=== PATIENT | female | born 1990 | race Caucasian/White ===

== ENCOUNTER 2021-12-22 22:05 | Emergency (ER) | payer MEDICAID, SELFPAY ==
[2021-12-22 22:06] VITALS: BP 189/126; PULSE 78; RESP 16; TEMP 36.6; O2SAT 98; BMI 35.9
[2021-12-22 22:46] VITALS: BP 168/108
--- NOTE | 2021-12-22 23:08 | EKG12_ITS ---
Test Reason : HTN Blood Pressure : / mmHG Vent. Rate : 066 BPM Atrial Rate : 066 BPM P-R Int : 148 ms QRS Dur : 090 ms QT Int : 370 ms P-R-T Axes : 036 040 025 degrees QTc Int : 387 ms Normal sinus rhythm with sinus arrhythmia Poor R wave progression Confirmed by SHI MARIE, SO ([id number]), editor trade journal SATISH DE LA ROSA ([id number]) on 12/26/2021 9:27:44 AM Referred By: Confirmed By:SO OSULLIVAN MD
[2021-12-22] MEDS: Labetalol (Prefilled) 20 MG/4 ML IV (23:55)
[2021-12-23 00:03] LABS: Anion Gap 6 (5-15); BUN 13 mg/dL (7-18); BUN/Creat Ratio 16.8 RATIO (10-20); Calcium,Total 9.3 mg/dL (8.5-10.1); Chloride 109 mmol/L (98-107); Creatinine, Serum 0.77 mg/dL (0.55-1.02); EST Glomerular Filtration Rate 92 mL/min (>60); Est Glom Filt Rate - Afr Amer 111 mL/min (>60); Estimated Creatinine Clearance 75.34 ml/min; Glucose 91 mg/dL (74-106); Potassium 4.5 mmol/L (3.5-5.1); Sodium Level 138 mmol/L (136-145); Troponin-I HS < 3 pg/mL (3.0-54.0)
[2021-12-23 00:30] VITALS: BP 150/94; PULSE 84; RESP 18; O2SAT 98
[2021-12-23 00:33] LABS: Absolute Lymphocyte Count 2.51 X10^3/uL (0.83-4.51); Absolute Neutrophil Count 4.2 X10^3/uL (2.0-7.7); Basophil# 0.04 X10^3/uL; Basophil% 0.5 % (0-1); Eosinophil# 0.18 X10^3/uL; Eosinophils% 2.4 % (0-5); Hematocrit 41.7 % (37-47); Hemoglobin 13.9 g/dL (12.0-15.0); Lymphocyte # 2.51 X10^3/ul (0.83-4.51); Lymphocyte % 33.2 % (19-41); Mean Corp Hgb Conc 33.3 g/dL (32-36); Mean Corpuscular Hgb 27.5 pg (27.0-32.0); Mean Corpuscular Volume 82.4 fL (81-99); Mean Platelet Vol. 10.5 fl (6.2-12.0); Monocyte% 7.9 % (0-10); NRBC Flagged by Analyzer 0 % (0-5); Neutrophil # 4.22 X10^3/uL (2.7-7.7); Neutrophil % 55.7 % (47-70); Platelet Count 206 K/mm3 (150-450); RBC Distribution Width CV 14.1 % (11.6-14.6); RBC Distribution Width SD 37.9 fl (35.1-43.9); Red Blood Count 5.06 M/mm3 (4.2-5.4); White Blood Count 7.6 K/mm3 (4.4-11.0)
[2021-12-23] MEDS: cloNIDine HCl 0.2 MG Tablet PO (00:39)
--- NOTE | 2021-12-23 00:49 | EX.ED.DYSGE1 ---
HPI History of Present Illness Chief Complaint: Hypertension Narrative Narrative: Patient is a 31-year-old female with past medical history of hypertension who currently takes amlodipine 10 mg once a day. She states she was recently diagnosed with cervical cancer and was put on the megestrol by her MEDICAL LAB SPECIALIST. She states since starting the megestrol she has noticed spikes in her blood pressure. She states today she felt a headache and slight shortness of breath and checked her blood pressure at home and it was elevated and secondary to this comes to the hospital for evaluation. She denies any excessive stimulant use or illicit drug use [facility] Medical History Anemia Bipolar disorder History of cervical cancer Hypertension PTSD (post-traumatic stress disorder) Home Medications lisinopril 20 mg PO DAILY 30 Days #30 tab 12/23/21 [Rx Last Taken Unknown] Allergy/AdvReac Type Severity Reaction Status Date / Time No Known Allergies Allergy Verified 12/22/21 22:09 Social History Smoking Status: Former smoker ROS ROS ED Constitutional Constitutional ED: Denies chills or fever(s) ENT ENT ED: Denies sore throat Cardiovascular Cardiovascular: Denies chest pain Respiratory/Chest Respiratory/Chest: Reports dyspnea; Denies cough Gastrointestinal Gastrointestinal: Denies abdominal pain, diarrhea, nausea or vomiting Genitourinary Genitourinary ED: Denies dysuria Musculoskeletal Musculoskeletal: Denies myalgias Integumentary Denies rash Neurologic Neurologic: Reports headache(s) Hematologic/Lymphatic Hematologic/Lymphatic: Denies easy bleeding or easy bruising EXAM Physical Exam Const Vital Signs: 12/22/21 22:06 12/22/21 22:42 12/22/21 22:46 Temperature 97.8 F Temperature Source Temporal Pulse Rate 78 Respiratory Rate 16 Respiratory Effort Normal Blood Pressure 189/126 H 168/108 H Blood Pressure Mean 147 128 Pulse Ox 98 Oxygen Delivery Method Room Air 12/23/21 00:30 Temperature Temperature Source Pulse Rate 84 Respiratory Rate 18 Respiratory Effort Blood Pressure 150/94 H Blood Pressure Mean 112 Pulse Ox 98 Oxygen Delivery Method Room Air Positive well nourished, well developed and obese General Appearance ED: well developed Nutritional Appearance: obese Eyes PERRL and EOMs intact bilaterally Neck supple Resp normal respiratory effort and clear to auscultation bilaterally Cardio regular rate and regular rhythm Rate: other Other Details: Radial pulses are +2-4 bilaterally are equal & GI normal to inspection, nondistended, normoactive bowel sounds, non-tender, non-distended and no masses GI Narrative: No voluntary guarding or rigidity no pulsatile mass Auscultation: normoactive bowel sounds Palpation: soft Extremity normal to inspection Neuro oriented x3 and CN's II-XII intact bilaterally Neuro Narrative: NIH stroke scale score of 0 Sensorium / Orientation: alert Motor Exam: strength 5/5 throughout Psych mental status grossly normal Skin no rashes or lesions noted MDM MDM MDM Narrative Medical decision making narrative: Patient presented to the ER hypertensive but otherwise had no signs of endorgan injury. She was recently started on the megestrol which we know is the cause of her accelerated hypertension. Patient had an EKG which shows sinus rhythm and blood work which showed normal kidney function and no elevation to her troponin. She was given clonidine and labetalol in the ER and her pressure reduced between the 15 and 25% which is the goal for acute reduction. On reevaluation she is resting comfortably and at this time as we have had reduction in her blood pressure as well as no signs of endorgan damage she can be discharged home and follow-up on an outpatient basis Lab Data Attestation: I reviewed the patient's lab results. Labs: Laboratory Results - last 24 hr 12/22/21 12/22/21 12/23/21 23:30 23:30 00:20 WBC Cancelled 7.6 Corrected WBC Cancelled RBC Cancelled 5.06 Hgb Cancelled 13.9 Hct Cancelled 41.7 MCV Cancelled 82.4 MCH Cancelled 27.5 MCHC Cancelled 33.3 RDW Std Deviation Cancelled 37.9 RDW Coeff of Dick Cancelled 14.1 Plt Count Cancelled 206 MPV Cancelled 10.5 Immature Gran % (Auto) Cancelled 0.300 Neut % (Auto) Cancelled 55.7 Lymph % (Auto) Cancelled 33.2 [place] % (Auto) Cancelled 7.9 Eos % (Auto) Cancelled 2.4 Baso % (Auto) Cancelled 0.5 Absolute Neuts (auto) Cancelled 4.2 Absolute Lymphs (auto) Cancelled 2.51 Total Counted Cancelled Neutrophils % (Manual) Cancelled Band Neutrophils % Cancelled Lymphocytes % (Manual) Cancelled Monocytes % (Manual) Cancelled Eosinophils % (Manual) Cancelled Basophils % (Manual) Cancelled Metamyelocytes % Cancelled Myelocytes % Cancelled Promyelocytes % Cancelled Blast Cells % Cancelled Plasma Cell % (Manual) Cancelled Other Cells % Cancelled Nucleated RBC % Cancelled 0 Nucleated RBCs/100 WBC Cancelled Differential Comment Cancelled Diff Path Review Cancelled Hypersegmented Neuts Cancelled Atypical Lymphocytes Cancelled Reactive Lymphocytes Cancelled Smudge Cells Cancelled Toxic Granulation Cancelled Toxic Vacuolation Cancelled Dohle Bodies Cancelled Min Rods Cancelled Platelet Estimate Cancelled Plt Morphology Comment Cancelled RBC Morphology Cancelled Polychromasia Cancelled Hypochromasia Cancelled Poikilocytosis Cancelled Basophilic Stippling Cancelled Anisocytosis Cancelled Microcytosis Cancelled Macrocytosis Cancelled Spherocytes Cancelled Sickle Cells Cancelled Target Cells Cancelled Tear Drop Cells Cancelled Ovalocytes Cancelled Stomatocytes Cancelled [place] Bodies Cancelled Oniel Cells Cancelled Bite Cells Cancelled Crenated Cell Cancelled Acanthocytes (Spur) Cancelled Rouleaux Cancelled Schistocytes Cancelled Sodium 138 Potassium 4.5 Chloride 109 H Carbon Dioxide 23.0 Anion Gap 6 BUN 13 Creatinine 0.77 Estim Creat Clear Calc 75.34 Est GFR (MDRD) Af Amer 111 Est GFR (MDRD) Non-Af 92 BUN/Creatinine Ratio 16.8 Glucose 91 Calcium 9.3 Troponin I High Sens < 3 L Discharge Plan Triage Chief Complaint: Hypertension ED Provider: Wilfredo Zavala Dx/Rx/DC Orders Clinical Impression: Accelerated hypertension Instructions: ED Hypertension, Established Prescriptions: New lisinopril 20 mg tablet 20 mg PO DAILY 30 Days Qty: 30 RF: 0 Referrals: NEHAL ROONEY [Other] Activity Restrictions/Additional Instructions: These add the lisinopril to your amlodipine for improved blood pressure control as we know it will continue to run high secondary to your megestrol use. Please return to the ER should you have any further concerns Disposition Disposition: Home, Self Care
[2021-12-23 01:17] VITALS: BP 133/84; PULSE 86; RESP 16; O2SAT 96
== END 2021-12-23 01:18 | disposition home or self-care (01) ==
PROVIDERS: Emergency Provider Emergency Medicine; Visit Provider Emergency Medicine
DX: I10 Essential (primary) hypertension (principal); F31.9 Bipolar disorder, unspecified; C53.9 Malignant neoplasm of cervix uteri, unspecified; Z87.891 Personal history of nicotine dependence; F43.10 Post-traumatic stress disorder, unspecified; Z79.899 Other long term (current) drug therapy; E66.9 Obesity, unspecified; Z68.35 Body mass index [BMI] 35.0-35.9, adult
CPT/HCPCS: 80048; 84484; 85025; 93005; 96374; 99284; J7030; A4216